=== PATIENT | female | born 1990 | race Caucasian/White ===

== ENCOUNTER 2023-08-14 04:10 | Day surgery (SDC) | payer OTHER ==
[2023-08-14] MEDS ORDERED: oxyCODONE HCL 5 MG TABLET PO PRN ×2 (07:23→10:47)
[2023-08-14] MEDS ORDERED: ONDANSETRON 4 MG/2 ML VIAL IVPUSH PRN ×2 (07:23→10:47)
[2023-08-14] MEDS ORDERED: LACTATED RINGERS SOLUTION 1,000 ML IV SCH (07:30)
[2023-08-14] MEDS ORDERED: FENTANYL CITRATE/PF 50 MCG/ML VIAL ONE (09:19)
[2023-08-14] MEDS ORDERED: PROPOFOL 20 ML ONE ×2 (09:20→10:18)
[2023-08-14] MEDS ORDERED: MIDAZOLAM HCL 2 MG/2 ML SINGLE DOSE VIAL ONE (09:20)
[2023-08-14] MEDS ORDERED: DEXAMETHASONE SOD PHOSPHATE 4 MG/1 ML VIAL ONE (09:21)
[2023-08-14] MEDS ORDERED: ONDANSETRON 4 MG/2 ML VIAL ONE (09:21)
[2023-08-14] MEDS ORDERED: KETOROLAC TROMETHAMINE 30 MG/1 ML VIAL ONE (09:21)
[2023-08-14] MEDS ORDERED: ACETAMINOPHEN INJECTION 100 ML IVPB ONE (10:10)
[2023-08-14] MEDS ORDERED: metroNIDAZOLE 0.75% VAGINAL GEL 70 GM TUBE ONE (10:32)
[2023-08-14] MEDS ORDERED: IBUPROFEN 600 MG TABLET (FP) PO PRN (10:47)
[2023-08-14] MEDS ORDERED: IBUPROFEN 800 MG/8 ML IJ IVPB PRN (10:47)
[2023-08-14] MEDS ORDERED: ELECTROLYTE-148 SOLN 1,000 ML IV SCH (11:00)
[2023-08-14 11:14] VITALS: RESP 18
[2023-08-14 11:53] VITALS: PULSE 72
[2023-08-14 12:45] VITALS: BP 93/52; TEMP 97.7
== END 2023-08-14 12:23 | disposition home or self-care (01) ==
LOC: JASU-SURG 04:10
PROVIDERS: ATTEND Obstetrics & Gynecology
PROC: 0UBC7ZX Excision of Cervix, Via Natural or Artificial Opening, Diagnostic (ICD-10-PCS; principal; 2023-08-14 10:00)
DX: D06.9 Carcinoma in situ of cervix, unspecified (principal)
CPT/HCPCS: 81025; 88305-TC; 88307-TC; 88341-TC; 88342-TC; J0131